=== PATIENT | male | born 1960 | race Caucasian/White ===

== ENCOUNTER 2018-07-15 19:14 | Emergency (ER) | payer BC ==
[2018-07-15 19:38] VITALS: BP 144/94; PULSE 99; TEMP 97.7; BMI 36.6
--- NOTE | 2018-07-15 19:38 | PDOC ---
History of Present Illness - General Chief Complaint: Injury Stated Complaint: FALL Time Seen by Provider: 07/15/18 19:38 - History of Present Illness Initial Comments: 07/15/18 19:59 Mr. Wynne is a 57 yo male w/ pmh of neurofibromatosis, osteoarthritis, and frequent falls 2/2 balance issues who presents s/p fall earlier today. Patient denies head injury or LOC however reports he fell down the stairs due to his normal balance issues. Patient is currently complaining of pain to his L/R knees and L/R shoulders. Patient has no other complaints at this time. The patient denies chest pain, shortness of breath, and headache. Denies fever, chills, nausea, vomit, diarrhea and constipation. Denies dysuria, frequency, urgency and hematuria. Past History - Past Medical History Allergies/Adverse Reactions: Allergies Allergy/AdvReac Type Severity Reaction Status Date / Time No Known Allergies Allergy Verified 07/15/18 19:36 Home Medications: Ambulatory Orders Acetaminophen W/ Codeine #3 [Tylenol # 3 -] 1 tab PO TID PRN #12 tablet MDD 3 Cholecalciferol (Vitamin D3) [Vitamin D3] 1,000 cap DAILY 07/15/18 Cyanocobalamin (Vitamin B-12) [Vitamin B-12] 1,000 mcg PO DAILY 07/15/18 Ibuprofen [Motrin -] 400 mg PO Q6H 07/15/18 Levothyroxine [Synthroid -] 112 mcg PO DAILY 07/15/18 - Suicide/Smoking/Psychosocial Hx Smoking History: Never smoked Hx Alcohol Use: Yes Drug/Substance Use Hx: Yes Review of Systems - Review of Systems Comments:: 07/15/18 20:01 GENERAL/CONSTITUTIONAL: No fever or chills. No weakness. HEAD, EYES, EARS, NOSE AND THROAT: No change in vision. No ear pain or discharge. No sore throat. CARDIOVASCULAR: No chest pain or shortness of breath RESPIRATORY: No cough, wheezing, or hemoptysis. GASTROINTESTINAL: No nausea, vomiting, diarrhea or constipation. GENITOURINARY: No dysuria, frequency, or change in urination. MUSCULOSKELETAL: +NAILA Shoulder and knee pain patient reports is chronic however exacerbated s/p fall. SKIN: No rash NEUROLOGIC: +Frequent balance problems as described. No headache, loss of consciousness, or change in strength/sensation. ENDOCRINE: No increased thirst. No abnormal weight change HEMATOLOGIC/LYMPHATIC: No anemia, easy bleeding, or history of blood clots. ALLERGIC/IMMUNOLOGIC: No hives or skin allergy. *Physical Exam - Physical Exam Comments: 07/15/18 20:01 GENERAL: +Patient obese w/ numerous nodules c/w Neurofibromatosis primarily over face and chest. Awake, alert, and fully oriented, in no acute distress HEAD: No signs of trauma, normocephalic, atraumatic EYES: PERRLA, EOMI, sclera anicteric, conjunctiva clear ENT: Auricles normal inspection, hearing grossly normal, nares patent, oropharynx clear without exudates. Moist mucosa NECK: Normal ROM, supple, no lymphadenopathy, JVD, or masses LUNGS: No distress, speaks full sentences, clear to auscultation bilaterally HEART: Regular rate and rhythm, normal S1 and S2, no murmurs, rubs or gallops, peripheral pulses normal and equal bilaterally. ABDOMEN: Soft, nontender, normoactive bowel sounds. No guarding, no rebound. No masses EXTREMITIES: Normal inspection, Normal range of motion, no edema. No clubbing or cyanosis. NEUROLOGICAL: Cranial nerves II through XII grossly intact. Normal speech, normal gait, no focal sensorimotor deficits SKIN: Warm, Dry, normal turgor, no rashes or lesions noted. Medical Decision Making - Medical Decision Making 07/15/18 23:57 Mr. Wynne is a 57 yo male w/ pmh as described who presents s/p fall. Patient alert and oriented and describing pain in joints without other concerning factors. XR of knees, shoulders, pelvis, foot sent as well as head and c-spine CT. All imaging negative. Discharging to home. Patient will f/u w/ PCP Dr. Gatica for further evaluation. No concern for acute process at this time. *DC/Admit/Observation/Transfer Diagnosis at time of Disposition: Musculoskeletal pain Fall down stairs Qualifiers: Encounter type: initial encounter Qualified Code(s): W10.8XXA - Fall (on) (from ) other stairs and steps, initial encounter - Discharge Dispostion Disposition: HOME Condition at time of disposition: Stable - Prescriptions Prescriptions: Acetaminophen W/ Codeine #3 [Tylenol # 3 -] 1 tab PO TID PRN #12 tablet MDD 3 PRN Reason: Severe Pain - Referrals Referrals: Dax Dimas MD [Staff Physician] - Eric Lima MD [Staff Physician] - Harry Polo MD [Staff Physician] - Eric Gatica MD [Primary Care Provider] - - Patient Instructions Printed Discharge Instructions: How to Prevent Falls, DI for Musculoskeletal Pain Additional Instructions: Thank you for coming in to the ER today Please be sure to follow up with your primary care physician Please review your CT reports, the x ray reports will be available for review tomorrow Please take medications as prescribed while supervised (to avoid becoming drowsy and increasing your risk of falling) Please return to the ER for any other concerns or complaints - Post Discharge Activity
[2018-07-15] MEDS ORDERED: ACETAMINOPHEN 325 MG TABLET (FP) PO ONE (19:57)
--- NOTE | 2018-07-15 20:01 | PDOC ---
Attending Attestation - Resident Resident Name: Maximilian Sandra - ED Attending Attestation I have performed the following: I have examined & evaluated the patient, The case was reviewed & discussed with the resident, I agree w/resident's findings & plan, Exceptions are as noted - HPI HPI: 07/15/18 20:18 Mr Wynne is a 57 yo yo M h/o Neurofibromatosis, peripheral neuropathy, arthritis who presents to the ER via ems s/p fall down stairs Pt was in his usual state of health when he sustained a slip and fall down 15 wooden stairs (not carpeted) No LOC, No amnesia Unlikely head trauma Pt was unable to get himself to standing His roommate called EMS Pt has a history of arthritis and has worsening shoulder, knee and back pain [No headache Of note: pt states that he has been falling more frequently - he estimates that he has fallen 25 times since February Most recent fall was a few days ago in which he sustained right foot pain ( evaluated at the urgent care where x rays were reportedly negative) Pt has been ambulatory with the assistance of a walker 07/15/18 20:23 07/15/18 20:39 - Physicial Exam PE: 07/15/18 20:31 Multiple neurofibromas readily apparent on visual inspection A & O x 3 No external signs of head trauma PERRLA, EOMI RRR CTA b/l No abd tenderness Pelvis is stable Moves extremities with no limitations No deformities noted Right foot swollen, bruised, diffusely tender to palpation - Medical Decision Making 07/15/18 20:36 S/p mechanical fall Pt has increasing number of falls over the past few months Currently denies major injury Will do: CT head and C spine Xrays Pain medications Re assess *DC/Admit/Observation/Transfer Diagnosis at time of Disposition: Musculoskeletal pain Fall down stairs Qualifiers: Encounter type: initial encounter Qualified Code(s): W10.8XXA - Fall (on) (from ) other stairs and steps, initial encounter - Discharge Dispostion Disposition: HOME Condition at time of disposition: Stable Decision to Admit order: No - Referrals Referrals: Eric Gatica MD [Primary Care Provider] - Eric Lima MD [Staff Physician] - Harry Polo MD [Staff Physician] - Dax Dimas MD [Staff Physician] - - Patient Instructions Printed Discharge Instructions: How to Prevent Falls, DI for Musculoskeletal Pain Additional Instructions: Thank you for coming in to the ER today Please be sure to follow up with your primary care physician Please review your CT reports, the x ray reports will be available for review tomorrow Please take medications as prescribed while supervised (to avoid becoming drowsy and increasing your risk of falling) Please return to the ER for any other concerns or complaints - Post Discharge Activity
[2018-07-15] MEDS ORDERED: ACETAMINOPHEN 325 MG TABLET (FP) ONE (20:18)
== END 2018-07-16 00:14 | disposition home or self-care (01) ==
LOC: JER 19:14
DX: M25.562 Pain in left knee (principal); M25.561 Pain in right knee; M25.512 Pain in left shoulder; M25.511 Pain in right shoulder; Z91.81 History of falling; R26.81 Unsteadiness on feet; W10.8XXA Fall (on) (from) other stairs and steps, initial encounter; Y93.89 Activity, other specified; Y92.89 Other specified places as the place of occurrence of the external cause; Y99.8 Other external cause status; M19.90 Unspecified osteoarthritis, unspecified site; G62.9 Polyneuropathy, unspecified; Q85.00 Neurofibromatosis, unspecified; R26.89 Other abnormalities of gait and mobility; Z99.89 Dependence on other enabling machines and devices
CPT/HCPCS: 70450-TC; 72125-TC; 72170-TC-FY; 73030-TC-LT-FY; 73030-TC-RT-FY; 73562-TC-LT-FY; 73562-TC-RT-FY; 73610-TC-RT-FY; 73630-TC-RT-FY; 99281-25

== ENCOUNTER 2024-03-20 07:20 | Emergency (ER) | payer OTHER, BC ==
[2024-03-20 07:28] VITALS: PULSE 97; RESP 18; BMI 29.9
[2024-03-20 09:17] VITALS: TEMP 97.9
[2024-03-20] MEDS ORDERED: ACETAMINOPHEN INJECTION 100 ML IVPB ONE (09:19)
[2024-03-20] MEDS: ACETAMINOPHEN 1000 MG/100 ML BAG IVPB ONE (09:30)
[2024-03-20 10:03] LABS: EPI CELLS 2 /uL (0-25.1); HYALINE CASTS 0 /uL (0-3.1); PH,URINE 5.5 (5.0-8.0); URINE APPEARANCE CLEAR; URINE BACTERIA 4 /uL (0-1359); URINE BILIRUBIN NEGATIVE (NEGATIVE); URINE COLOR YELLOW; URINE GLUCOSE (UA) NEGATIVE (NEGATIVE); URINE KETONE 1+ (NEGATIVE); URINE LEUK ESTERASE NEGATIVE (NEGATIVE); URINE NITRITE NEGATIVE (NEGATIVE); URINE PROTEIN NEGATIVE (NEGATIVE); URINE RBC 37 /uL (0-23.9); URINE UROBILINOGEN 0.2 mg/dL (0.2-1.0); URINE WBC 6 /uL (0-25.8)
[2024-03-20 10:10] LABS: INR 1.19 (0.83-1.09); PROTHROMBIN TIME (PATIENT) 13.6 SEC (9.7-13.0)
[2024-03-20 10:17] LABS: BASO % 0.4 % (0-2.0); EOS % 0.5 % (0-4.5); HEMATOCRIT 41.4 % (35.4-49); HEMOGLOBIN 14.3 GM/dL (11.7-16.9); LYMPH % 8.6 % (8-40); MCHC 34.5 g/dl (32.0-35.9); MEAN CELL VOLUME 92.9 fl (80-96); MEAN PLT VOLUME 8.7 fl (7.5-11.1); NEUT % 82.5 % (42.8-82.8); PLATELET COUNT 266 10^3/uL (134-434); RBC 4.45 M/mm3 (4.00-5.60); RDW 13.7 % (11.9-15.9); WHITE BLOOD COUNT 12.7 K/mm3 (4.0-10.0)
[2024-03-20 10:23] LABS: ALBUMIN 3.5 g/dl (3.4-5.0); BLOOD UREA NITROGEN 12.7 mg/dL (7-18); CALCIUM 9.9 mg/dL (8.5-10.1)
[2024-03-20 10:27] LABS: CREATININE 0.8 mg/dL (0.55-1.3)
[2024-03-20 10:28] LABS: BILIRUBIN,TOTAL 0.8 mg/dL (0.2-1); TOT PROT 6.9 g/dl (6.4-8.2)
[2024-03-20 17:39] VITALS: BP 111/66
== END 2024-03-20 19:23 | disposition home or self-care (01) ==
LOC: JER 07:20
PROC: 3E033NZ Introduction of Analgesics, Hypnotics, Sedatives into Peripheral Vein, Percutaneous Approach (ICD-10-PCS; principal; 2024-03-20)
DX: N40.1 Benign prostatic hyperplasia with lower urinary tract symptoms (principal); R33.8 Other retention of urine; R10.30 Lower abdominal pain, unspecified
CPT/HCPCS: 36415; 74177-TC; 80053; 81003; 85025; 85610; 86850; 86900; 86901; 87086; 99285-25; J0131; Q9967

== ENCOUNTER 2024-04-15 04:33 | Day surgery (SDC) | payer OTHER, BC ==
[2024-04-15] MEDS ORDERED: KETOROLAC TROMETHAMINE 30 MG/1 ML VIAL ONE (09:22)
[2024-04-15] MEDS ORDERED: ceFAZolin SODIUM 1 GM VIAL ONE (09:22)
[2024-04-15] MEDS ORDERED: PROPOFOL 20 ML ONE ×2 (09:22→10:38)
[2024-04-15] MEDS ORDERED: MIDAZOLAM HCL 2 MG/2 ML SINGLE DOSE VIAL ONE (09:22)
[2024-04-15] MEDS ORDERED: ONDANSETRON 4 MG/2 ML VIAL ONE (09:22)
[2024-04-15] MEDS ORDERED: DEXAMETHASONE SOD PHOSPHATE 4 MG/1 ML VIAL ONE (09:22)
[2024-04-15] MEDS: ceFAZolin SODIUM 1 GM VIAL IVPB ONE (09:37)
[2024-04-15] MEDS ORDERED: oxyCODONE HCL 5 MG TABLET PO PRN (11:19)
[2024-04-15] MEDS ORDERED: ACETAMINOPHEN INJECTION 100 ML ONE (12:04)
[2024-04-15] MEDS: ACETAMINOPHEN 1000 MG/100 ML BAG IVPB ONE (12:16)
[2024-04-15] MEDS: DEXTROSE 5%-0.45% SALINE 1,000 ML IV SCH (13:00)
[2024-04-15] MEDS: LACTATED RINGERS SOLUTION 1,000 ML IV SCH (17:32)
[2024-04-15] MEDS: CEFAZOLIN SODIUM 2 GM in DEXTROSE 5%-WATER 100 ML IVPB SCH (19:01)
[2024-04-15] MEDS: ACETAMINOPHEN 325 MG TABLET (FP) PO PRN (21:45)
[2024-04-16] MEDS: LEVOTHYROXINE 112 MCG, LEVOTHYROXINE 25 MCG PO SCH (08:01)
[2024-04-16 09:39] LABS: BASO % 0.1 % (0-2.0); EOS % 0.1 % (0-4.5); HEMOGLOBIN 8.8 GM/dL (11.7-16.9); LYMPH % 6.6 % (8-40); MCH 31.7 pg (25.7-33.7); MEAN CELL VOLUME 93.2 fl (80-96); MEAN PLT VOLUME 8.7 fl (7.5-11.1); MONO % 7.8 % (3.8-10.2); NEUT % 85.4 % (42.8-82.8); PLATELET COUNT 333 10^3/uL (134-434); RBC 2.79 M/mm3 (4.00-5.60); RDW 14.4 % (11.9-15.9); WHITE BLOOD COUNT 28.2 K/mm3 (4.0-10.0)
[2024-04-16 09:57] LABS: POTASSIUM 3.8 mmol/L (3.5-5.1)
[2024-04-16] MEDS: POLYETHYLENE GLYCOL (HEALTHYLAX) 3350 17 GM PACKET PO ONE (09:57)
[2024-04-16 09:59] LABS: BLOOD UREA NITROGEN 17.1 mg/dL (7-18); CALCIUM 8.7 mg/dL (8.5-10.1)
[2024-04-16 12:28] LABS: ANISOCYTOSIS 0; MACROCYTOSIS 0
[2024-04-16 15:53] VITALS: BP 112/56; PULSE 96; RESP 20; TEMP 98.1
== END 2024-04-16 18:28 | disposition home or self-care (01) ==
LOC: JASUSAT 04:33 → J8W 13:12 → JASUSAT 04-16 18:28
PROVIDERS: ATTEND Urology
PROC: 0VT08ZZ Resection of Prostate, Via Natural or Artificial Opening Endoscopic (ICD-10-PCS; principal; 2024-04-15 09:00)
DX: N40.0 Benign prostatic hyperplasia without lower urinary tract symptoms (principal); R33.9 Retention of urine, unspecified
CPT/HCPCS: 36415; 80048; 85025; 88305-TC; 94760; A4346; J0131

== ENCOUNTER 2024-05-23 19:30 | Emergency (ER) | payer OTHER, BC ==
[2024-05-23 19:41] VITALS: BP 128/80; PULSE 108; RESP 20; TEMP 98.1; BMI 29.5
[2024-05-23 21:01] LABS: EOS % 0.6 % (0-4.5); HEMATOCRIT 34.6 % (35.4-49); HEMOGLOBIN 11.3 GM/dL (11.7-16.9); MCH 28.9 pg (25.7-33.7); MCHC 32.8 g/dl (32.0-35.9); MEAN CELL VOLUME 88.1 fl (80-96); MEAN PLT VOLUME 8.1 fl (7.5-11.1); MONO % 9.9 % (3.8-10.2); NEUT % 78.5 % (42.8-82.8); PLATELET COUNT 413 10^3/uL (134-434); RBC 3.92 M/mm3 (4.00-5.60); RDW 14.7 % (11.9-15.9); WHITE BLOOD COUNT 11.6 K/mm3 (4.0-10.0)
[2024-05-23 21:31] LABS: POTASSIUM 3.8 mmol/L (3.5-5.1)
[2024-05-23 21:34] LABS: ALBUMIN 2.8 g/dl (3.4-5.0); BLOOD UREA NITROGEN 13.3 mg/dL (7-18)
[2024-05-23 21:36] LABS: CREATININE 1.3 mg/dL (0.55-1.3)
[2024-05-23 21:38] LABS: BILIRUBIN,TOTAL 0.4 mg/dL (0.2-1); TOT PROT 6.5 g/dl (6.4-8.2)
[2024-05-23] MEDS ORDERED: SULFAMETHOXAZOLE/TRIMETHOPRIM 800MG/160MG D.S. TABLET ONE (22:08)
[2024-05-23] MEDS: SULFAMETHOXAZOLE/TRIMETHOPRIM 800MG/160MG D.S. TABLET PO ONE (22:11)
[2024-05-23 22:16] LABS: URINE APPEARANCE TURBID; URINE BILIRUBIN NEGATIVE (NEGATIVE); URINE COLOR YELLOW; URINE GLUCOSE (UA) NEGATIVE (NEGATIVE); URINE KETONE TRACE (NEGATIVE); URINE PROTEIN 300 (NEGATIVE)
[2024-05-23 22:17] LABS: HYALINE CASTS 1266.42 /uL (0-3.1); URINE BACTERIA 224.6 /uL (0-1359); URINE LEUK ESTERASE 4+ (NEGATIVE); URINE NITRITE NEGATIVE (NEGATIVE); URINE RBC 540.6 /uL (0-23.9); URINE WBC 17179.7 /uL (0-25.8)
== END 2024-05-23 22:57 | disposition home or self-care (01) ==
LOC: JER 19:30
PROC: 0T2BX0Z Change Drainage Device in Bladder, External Approach (ICD-10-PCS; principal; 2024-05-23)
DX: N30.01 Acute cystitis with hematuria (principal); R33.9 Retention of urine, unspecified; R10.2 Pelvic and perineal pain; R30.0 Dysuria
CPT/HCPCS: 36415; 80053; 81003; 85025; 87086; 87186; 99283-25